=== PATIENT | male | born 1990 | race African-American/Black ===

== ENCOUNTER 2024-05-04 10:05 | Emergency (ER) | payer OTHER ==
[~2024-05-04] VITALS: Ht 193 cm; Wt 115.7 kg
[2024-05-04 12:12] LABS: BASO # 0.1 10^3/uL (0.0-0.2); BASO % 0.4 % (0.0-1.0); EOS # 0.4 10^3/uL (0.0-0.5); HEMATOCRIT 44.4 % (42.0-52.0); HEMOGLOBIN 14.8 g/dl (13.5-17.5); LYMPH # 1.6 10^3/uL (1.5-5.0); LYMPH % 13.3 % (24.0-44.0); MEAN CORPUSCULAR HEMOGLOBIN 29.1 pg (27.0-33.0); MEAN CORPUSCULAR HGB CONC 33.3 g/dl (32.0-36.5); MEAN CORPUSCULAR VOLUME 87.4 fl (80.0-96.0); MONO # 0.6 10^3/uL (0.0-0.8); MONO % 5.4 % (2.0-8.0); NEUTROPHILS # 9.2 10^3/uL (1.5-8.5); NEUTROPHILS % 77.6 % (36.0-66.0); PLATELET COUNT, AUTOMATED 273 10^3/uL (150-450); RED BLOOD COUNT 5.08 10^6/uL (4.30-6.10); WHITE BLOOD COUNT 11.9 10^3/uL (4.0-10.0)
[2024-05-04 12:37] LABS: CK-MB VALUE MASS 1.2 NG/ML (<3.6)
[2024-05-04 12:39] LABS: CPK CREATINE PHOSPHOKINASE 250 U/L (46-171); MB/CK RELATIVE INDEX 0.48 (< OR =4)
[2024-05-04 12:40] LABS: BLOOD UREA NITROGEN 18 MG/DL (9-23); CALCIUM LEVEL 9.9 MG/DL (8.5-10.1); CARBON DIOXIDE LEVEL 29 MMOL/L (20-31); CHLORIDE LEVEL 107 MMOL/L (98-107); CREATININE FOR GFR 1.02 MG/DL (0.70-1.30); GLOMERULAR FILTRATION RATE > 60.0 (>60); GLUCOSE, FASTING 92 MG/DL (60-100); POTASSIUM SERUM 4.1 MMOL/L (3.5-5.1); SODIUM LEVEL 140 MMOL/L (136-145)
[2024-05-04 13:32] VITALS: BP 143/82; TEMP 98; O2SAT 98
== END 2024-05-04 14:25 | disposition home or self-care (01) ==
LOC: M ED 10:05
DX: J06.9 Acute upper respiratory infection, unspecified (principal); R05.9 Cough, unspecified; I49.40 Unspecified premature depolarization

== ENCOUNTER 2024-09-07 07:12 | Day surgery (SDC) | payer OTHER ==
[~2024-09-07] VITALS: Ht 193 cm; Wt 124.6 kg
[~2024-09-07 07:12] MED LIST: IRON325T2 PO; NOXI1TAB PO; THERTAB52 PO; VITA100065 PO
[2024-09-07] MEDS ORDERED: NS (Normal Saline) 0.9% 1,000 ML IV SCH ×2 (07:35→10:25)
[2024-09-07] MEDS ORDERED: LIDOCAINE 2% 100MG/5ML SDV (FOR ANES.) As Ordered ONE (08:26)
[2024-09-07] MEDS ORDERED: ONDANSETRON 4MG 2ML VIAL As Ordered ONE (08:26)
[2024-09-07] MEDS ORDERED: propofoL 200 MG/20 ML VIAL As Ordered ONE (08:26)
[2024-09-07] MEDS ORDERED: KETOROLAC 60MG 2ML VIAL As Ordered ONE (08:26)
[2024-09-07] MEDS ORDERED: ACETAMINOPHEN 1000MG/100ML IV BAG As Ordered ONE (08:26)
[2024-09-07] MEDS ORDERED: fentaNYL 100 MCG/2 ML INJECTION As Ordered ONE (08:27)
[2024-09-07] MEDS ORDERED: MIDAZOLAM INJ 2MG/2ML VIAL As Ordered ONE (08:27)
[2024-09-07] MEDS: ceFAZolin SOD 2 GM in IV 1 EA IV ONE (08:43)
[2024-09-07] MEDS: LIDOCAINE 1% SDV 30ML VIAL As Ordered ONE (09:04)
[2024-09-07] MEDS ORDERED: oxyCODONE 5MG TAB PO PRN (10:25)
[2024-09-07] MEDS ORDERED: HYDROMORPHONE HCL 0.5 MG/ 0.5 ML SYRINGE IV PRN (10:25)
[2024-09-07] MEDS ORDERED: ONDANSETRON 4MG 2ML VIAL IV PRN (10:25)
[2024-09-07] MEDS ORDERED: fentaNYL 100 MCG/2 ML INJECTION IV PRN (10:25)
[2024-09-07 12:05] VITALS: BP 122/68; TEMP 98; O2SAT 96
== END 2024-09-07 12:10 | disposition home or self-care (01) ==
LOC: M SDC 07:12
PROVIDERS: ATTEND Podiatrist Foot & Ankle Surgery
DX: M20.12 Hallux valgus (acquired), left foot (principal); M21.612 Bunion of left foot; F17.200 Nicotine dependence, unspecified, uncomplicated
CPT/HCPCS: 28299; 76000; C1713; J0131; J0665; J0690; J1100; J1885; J2250; J2405; J3010

== ENCOUNTER 2024-12-28 08:35 | Day surgery (SDC) | payer OTHER ==
[~2024-12-28] VITALS: Ht 193 cm; Wt 104.3 kg
[~2024-12-28 08:35] MED LIST changes: +ACETAMINOPHEN 1000MG/100ML IV BAG As Ordered ONE; +CALC500T68 PO; +D 50CAP2 PO; +EQL50TAB2 PO; +GLYCOPYRROLATE INJ 0.2 MG/ML 2 ML VIAL As Ordered ONE; +KETOROLAC 30 MG/ML 1ML VIAL As Ordered ONE; +LIDOCAINE 2% 100MG/5ML SDV (FOR ANES.) As Ordered ONE; +MELO15TA28 PO; +MIDAZOLAM INJ 2MG/2ML VIAL As Ordered ONE; +ONDANSETRON 4MG 2ML VIAL As Ordered ONE; +RA T500C2 PO; +fentaNYL 100 MCG/2 ML INJECTION As Ordered ONE; +propofoL 200 MG/20 ML VIAL As Ordered ONE
[2024-12-28] MEDS ORDERED: LR 1,000 ML IV SCH ×2 (09:00→11:30)
[2024-12-28] MEDS: ceFAZolin SOD 2 GM IV ONCE IV ONE (10:05)
[2024-12-28] MEDS: LIDOCAINE 1% MDV 20ML VIAL As Ordered ONE (10:10)
[2024-12-28] MEDS ORDERED: HYDROMORPHONE HCL 0.5 MG/ 0.5 ML SYRINGE IV PRN (11:30)
[2024-12-28] MEDS ORDERED: ONDANSETRON 4MG 2ML VIAL IV PRN (11:30)
[2024-12-28] MEDS ORDERED: oxyCODONE 5MG TAB PO PRN (11:30)
[2024-12-28] MEDS ORDERED: fentaNYL 100 MCG/2 ML INJECTION IV PRN (11:30)
[2024-12-28 12:49] VITALS: BP 131/78; TEMP 98.2; O2SAT 100
== END 2024-12-28 12:54 | disposition home or self-care (01) ==
LOC: M SDC 08:35
PROVIDERS: ATTEND Podiatrist Foot & Ankle Surgery
DX: M21.611 Bunion of right foot (principal); M20.11 Hallux valgus (acquired), right foot; F17.200 Nicotine dependence, unspecified, uncomplicated; Z79.899 Other long term (current) drug therapy
CPT/HCPCS: 28297; 28310; 76000; C1602; C1713; J0131; J0665; J0690; J1100; J1596; J1885; J2250; J2405; J3010

== ENCOUNTER 2025-03-14 13:47 | Emergency (ER) | payer OTHER ==
[~2025-03-14] VITALS: Ht 193 cm; Wt 123.5 kg
[~2025-03-14 13:47] MED LIST changes: -ACETAMINOPHEN 1000MG/100ML IV BAG As Ordered ONE; -EQL50TAB2 PO; -GLYCOPYRROLATE INJ 0.2 MG/ML 2 ML VIAL As Ordered ONE; -KETOROLAC 30 MG/ML 1ML VIAL As Ordered ONE; -LIDOCAINE 2% 100MG/5ML SDV (FOR ANES.) As Ordered ONE; -MIDAZOLAM INJ 2MG/2ML VIAL As Ordered ONE; -ONDANSETRON 4MG 2ML VIAL As Ordered ONE; +VITA1TAB82 PO; -fentaNYL 100 MCG/2 ML INJECTION As Ordered ONE; -propofoL 200 MG/20 ML VIAL As Ordered ONE
[2025-03-14 13:51] VITALS: BP 142/88; TEMP 98.2; O2SAT 98
[2025-03-14] MEDS ORDERED: TRIA1CR80 TOP (14:29)
== END 2025-03-14 14:45 | disposition home or self-care (01) ==
LOC: M ED 13:47
DX: L30.1 Dyshidrosis [pompholyx] (principal); Z79.899 Other long term (current) drug therapy